=== PATIENT | male | born 1970 | race Two or more races ===

== ENCOUNTER → 2022-04-05 | Emergency (ER) | payer OTHER ==
[~2022-04-05] VITALS: Ht 180.3 cm; Wt 90.7 kg
[~2022-04-05] MED LIST: DOLOGEN CAPLET1 TAB PO; TUSSIONEX PENNKI5 ML PO; XYZAL5 MG; ZEBUTAL CAPSULE1 CAP PO
== END | disposition left against medical advice (07) ==
LOC: ER 15:04
DX: R21 Rash and other nonspecific skin eruption (principal)